=== PATIENT | female | born 1960 | race Caucasian/White ===

== ENCOUNTER 2018-10-30 00:56 | Inpatient (IN) | payer MEDICAID, MEDICARE ==
[2018-10-30] VITALS (11 sets, daily range): BP systolic 101–161; BP diastolic 48–91
[~2018-10-30] VITALS: Ht 162.6 cm; Wt 101.8 kg
[2018-10-30] MEDS ORDERED: CITA20TA6 PO (03:15)
[2018-10-30] MEDS ORDERED: ALPR1TAB6 PO (03:15)
[2018-10-30] MEDS ORDERED: LISI40TA2 PO (03:15)
[2018-10-30] MEDS ORDERED: ALPRAZolam 1 MG TABLET PO SCH (03:30)
[2018-10-30] MEDS ORDERED: HEPARIN for IV BOLUS 10,000 UNIT/10 ML VIAL. IV PRN (03:30)
[2018-10-30] MEDS ORDERED: MORPHINE SULFATE 4 MG/ML VIAL. IV PRN (03:30)
[2018-10-30] MEDS ORDERED: HEPARIN 25,000UTS/500ML PREMIX 500 ML IV PRN (03:30)
[2018-10-30] MEDS ORDERED: ANTI-COAG MONITOR BY PHARMACY. MC PRN (03:45)
[2018-10-30] MEDS: ALPRAZolam 1 MG TABLET PO PRN ×3 (04:18→23:31)
--- NOTE | 2018-10-30 08:38 | EKG ---
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
[2018-10-30 08:47] LABS: MAGNESIUM 1.8 mg/dL (1.8-2.4)
[2018-10-30 08:48] LABS: CHOLESTEROL/HDL RATIO 5.4
--- NOTE | 2018-10-30 09:49 | PDOC2 ---
CARDIAC CONSULT DATE OF CONSULT Date of Consult DATE: 10/30/18 TIME: 09:43 REASON FOR CONSULT Reason for Consult: NSTEMI REFERRING PHYSICIAN Referring Physician: Von SOURCE Source: Chart review, Patient HISTORY OF PRESENT ILLNESS HISTORY OF PRESENT ILLNESS This is a pleasant 58 yo female admitted for complains of chest pain. She was initially at [facility] and transferred to [facility] for further evaluation. Reports this started last night after waking up to go to the bathroom. Reports that she started having left chest burning that went to her left shoulder , arm and left back. No nausea or vomiting but this lasted about an hour. Prior to this no exertional CP, or LOPEZ. Denies any palpitations.. No jaw tightness. No prior hx of CAD. She does have COPD and does not take any ASA nor statin. She was not forthcoming with information particularly with ETOH use. She said that she uses ETOH at least 2-3 shots of whiskey occasionally but her son tells me that she drinks at least about 5x weekly and currently displaying arm tremors. He uses O2 and continue to smoke tobacco. PAST MEDICAL HISTORY Cardiovascular: HTN Pulmonary: COPD CENTRAL NERVOUS SYSTEM: Other (No pertinent history) GI: No pertinent hx Heme/Onc: No pertinent hx Hepatobiliary: No pertinent hx Psych: Anxiety Musculoskeletal: Osteoarthritis Rheumatologic: No pertinent hx Infectious disease: No pertinent hx ENT: No pertinent hx Renal/: No pertinent hx Endocrine: No pertinent hx Dermatology: No pertinent hx PAST SURGICAL HISTORY Past Surgical History: FAMILY HISTORY Family History: Heart Disease (mother CHF) SOCIAL HISTORY Smoke: <1 pack per day (>30 yrs) ALCOHOL: heavy Drugs: None Lives: with Family CURRENT MEDICATIONS CURRENT MEDICATIONS Current Medications Medications (Trade) Dose Ordered Sig/Tanvi Route PRN Reason Start Time Stop Time Status Last Admin Dose Admin Alprazolam (Xanax) 1 mg PRN Q8HRS PRN PO ANXIETY / AGITATION 10/30/18 03:30 10/30/18 04:27 Heparin Sodium/ Dextrose 500 ml @ 0 mls/hr CONT PRN IV SEE I/O RECORD 10/30/18 03:30 10/30/18 04:29 Heparin Sodium (Porcine) (Heparin Sodium) 2,550 unit PRN Q6HRS PRN IV FOR UFH LEVEL LESS THAN 0.2 10/30/18 03:30 10/30/18 06:48 Info (Anti-Coagulation Monitoring By Pharmacy) 1 each PRN DAILY PRN MC SEE COMMENTS 10/30/18 03:45 10/30/18 04:01 ALLERGIES ALLERGIES: Coded Allergies: No Known Drug Allergies (Unverified , 10/30/18) ROS Review of System 14 point ROS evaluated with pertinent positives noted per HPI PHYSICAL EXAM General: Alert, Oriented X3, Cooperative, No acute distress HEENT: Atraumatic, Mucous membr. moist/pink, Other (periodontal disease) Heart: Regular rate (SR), Other (distant heart sounds) Extremities: No cyanosis, No edema Skin: No breakdown, No significant lesion, Other (flushed) Neuro: Normal speech, Sensation intact, Other (arm tremors) Psych/Mental Status: Mental status NL, Mood NL MUSCULOSKELETAL: Osteoarthritic changes both hands VITALS VITALS Vital Signs Date Time Temp Pulse Resp B/P (MAP) Pulse Ox O2 Delivery O2 Flow Rate FiO2 10/30/18 07:10 97.5 83 138/75 (96) 98 Nasal Cannula 3.0 97.5 LABS Lab: Laboratory Tests Test 10/30/18 04:47 10/30/18 08:23 Heparin Anti-Xa Act, Unfractionated 0.13 IU/mL (0.30-0.70) Magnesium Level 1.8 mg/dL (1.8-2.4) Troponin I Quantitative 0.467 ng/mL (0.000-0.055) 0.697 ng/mL (0.000-0.055) Triglycerides Level 312 mg/dL (0-150) Cholesterol Level 253 mg/dL (0-200) LDL Cholesterol, Calculated 144 mg/dL (0-100) VLDL Cholesterol, Calculated 62 mg/dL (0-40) Non-HDL Cholesterol Calculated 206 mg/dL (0-129) HDL Cholesterol 47 mg/dL (40-60) Cholesterol/HDL Ratio 5.4 Thyroid Stimulating Hormone (TSH) 1.102 uIU/mL (0.358-3.74) ASSESSMENT/PLAN ASSESSMENT/PLAN 1. NSTEMI: Trop up to 0.69, EKG SR with acute ST-T wave changes with poor QRS amplitudes 2. Alcoholism 3. HTN: controlled 4. HLP: new no coverage 5. Hyperglycemia 6. Morbid obesity 7. COPD with tobaccoism Recommendations 1. Heparin drip in place. ASA 2. CIWA protocol per PCP. Start on B complex/MVI 3. TTE, TSH, A1C. IVF to start. 4. LHC today, rrisks and benefits discussed and agreeable to proceed. 5. Will restart home BP meds. Start on statin. 6. Wt loss. Discussed smoking cessation and curbing use of ETOH. RA ALONZO APRN Oct 30, 2018 09:49
[2018-10-30] MEDS ORDERED: ASPIRIN ENTERIC COATED 81 MG TABLET.DR. PO SCH (11:00)
[2018-10-30] MEDS ORDERED: IV 1/2 NORMAL SALINE 1,000 ML IV ONE (11:00)
[2018-10-30] MEDS: MULTIVITAMIN with MINERAL TABLET. PO SCH (11:19)
[2018-10-30] MEDS: CITALOPRAM 20 MG TABLET. PO SCH (11:20)
[2018-10-30] MEDS: THIAMINE 100 MG TABLET. PO SCH (11:20)
[2018-10-30] MEDS: FOLIC ACID 1 MG TABLET. PO SCH (11:20)
[2018-10-30] MEDS: LISINOPRIL 20 MG TABLET PO SCH (11:21)
--- NOTE | 2018-10-30 11:46 | CARD ---
MR#: [id number] Date of Study: 10/30/2018 Ordering Physician: RA ALONZO, Referring Physician: LORIN OCAMPO, Tech: Sada Stevens APPROVED REPORT EXAM: Two-dimensional and M-mode echocardiogram with Doppler and color Doppler. Other Information Quality : AverageHR: 81bpm Technically limited study due to body habitus. INDICATION Non STEMI Tricuspid Valve RAP [id number] Peak Gr.23mmHg [id number] LEFT VENTRICLE The left ventricle is normal size. There is mild concentric left ventricular hypertrophy. The left ve ntricular systolic function is normal and the ejection fraction is within normal range. The Ejection Fraction is 50-55%. There is mild hypokinesis in the apical septal wall. The left ventricular diastol ic function and filling is normal for age. RIGHT VENTRICLE The right ventricle is borderline dilated. There is normal right ventricular wall thickness. The righ t ventricular systolic function is normal. ATRIA The left atrium size is normal. The right atrium size is normal. The interatrial septum is intact wit h no evidence for an atrial septal defect or patent foramen ovale as noted on 2-D or Doppler imaging. AORTIC VALVE The aortic valve is not well visualized. Doppler and Color Flow revealed no significant aortic regurg itation. There is no significant aortic valvular stenosis. MITRAL VALVE The mitral valve is normal in structure and function. There is no evidence of mitral valve prolapse. There is no mitral valve stenosis. Doppler and Color-flow revealed trace mitral regurgitation. TRICUSPID VALVE The tricuspid valve is not well visualized. Doppler and Color Flow revealed trace tricuspid regurgita tion. There is no tricuspid valve stenosis. PULMONIC VALVE The pulmonic valve is not well visualized. Doppler and Color Flow revealed no pulmonic valvular regur gitation. There is no pulmonic valvular stenosis. GREAT VESSELS The aortic root is normal in size. The IVC is normal in size and collapses >50% with inspiration. PERICARDIAL EFFUSION There is a trace pericardial effusion. Critical Notification Critical Value: No <Conclusion> The left ventricular systolic function is normal and the ejection fraction is within normal range. Th e Ejection Fraction is 50-55%. There is mild hypokinesis in the apical septal wall. Signed by : Feliberto Candelaria, Electronically Approved : 10/30/2018 11:46:20
[2018-10-30] MEDS ORDERED: IODIXANOL 320 MG/ML 100 ML VIAL. ONE ×2 (12:42→14:07)
[2018-10-30] MEDS ORDERED: LIDOCAINE 1% Multi-Dose 20 ML VIAL. ONE (12:42)
[2018-10-30] MEDS ORDERED: LORazepam 1 MG TABLET PO PRN (12:45)
[2018-10-30] MEDS ORDERED: HALOPERIDOL LACTATE 5 MG/ML VIAL. IVP PRN (12:45)
[2018-10-30] MEDS ORDERED: chlordiazePOXIDE HCL 25 MG CAPSULE PO PRN (12:45)
[2018-10-30] MEDS ORDERED: cloNIDine HCL 0.1 MG TABLET PO PRN (12:45)
--- NOTE | 2018-10-30 12:49 | PDOC ---
MODERATE SEDATION ASSESSMENT RISKS/ALTERNATIVES Risks/Alternatives Risks and alternatives of this type of sedation and procedure discussed with: RISK/ALTERNATIVES: Patient H & P ON CHART H & P H & P on chart and reviewed for co-morbid conditions and appropriate labs. H&P ON CHART: Yes STATUS PREG STATUS ASSESSED: Yes MEDS/ALLERGIES REVIEWED Meds/Allergies Reviewed Medications and Allergies including time and route of recently administered narcotics and sedatives. MEDS/ALLERGIES REVIEWED: Yes ASA RATING ASA RATING: II AIRWAY ASSESSMENT Airway Assessment Airway patency, oral function limitations, presence of caps, crowns, dentures, partials, and ability to extend neck assessed. AIRWAY ASSESSMENT: Yes MALLAMPATI SCORE MALLAMPATI SCORE: II PRE-SEDATION ASSESSMENT PRE-SEDATION ASSESSMENT: Yes SIRI NAJERA MD Oct 30, 2018 12:49
[2018-10-30] MEDS ORDERED: MIDAZOLAM HCL/PF 2 MG/2 ML VIAL. ONE ×2 (13:02→13:35)
[2018-10-30] MEDS ORDERED: fentaNYL PF VIAL 100 MCG/2 ML VIAL ONE (13:02)
--- NOTE | 2018-10-30 13:10 | HP ---
ADMIT DATE: 10/30/2018 HISTORY OF PRESENT ILLNESS: The patient is a 58-year-old female patient who was seen initially at [facility] and was transferred to [facility] for further evaluation. Reportedly, the patient stated that she has chest pain that started last night after waking up to go to the bathroom. She stated she started having left-sided chest pain that she describes as burning that went on to her left shoulder, arm and her left back. She denied any nausea or vomiting, but the episode lasted about an hour. She denied any exertional chest pain, denied any shortness of breath on exertion, denied any palpitation. Denied any previous history of any heart disease. She has had lab work done at [facility], which showed that her troponin was 0.095 and her EKG demonstrated sinus tachycardia with a rate of 101. There are some nonspecific ST changes in the anteroseptal leads. PAST MEDICAL HISTORY: Significant for hypertension, chronic obstructive pulmonary disease, anxiety, osteoarthritis. PAST SURGICAL HISTORY: Significant for . FAMILY HISTORY: Significant for congestive heart failure in her mother. SOCIAL HISTORY: She lives with her family. She smokes a pack a day for more than 30 years. She drinks alcohol heavily, although she tries to minimize that. She does not use any drugs. REVIEW OF SYSTEMS: As per history of present illness. ALLERGIES: She has no known drug allergies. MEDICATIONS: She is currently on following medications: She is on lisinopril 40 mg once a day, citalopram hydrobromide 20 mg once a day, alprazolam 1 mg daily. REVIEW OF SYSTEMS: The patient denied any blurring of vision, cataract, glaucoma or macular degeneration. Denied any earache, tinnitus or sensorineural deafness. Denied any nosebleeds, stuffy nose or postnasal drip. Denied any sore throat, sore tongue, toothache, hoarseness of voice or difficulty swallowing. Denied any nausea, vomiting, diarrhea or constipation. Denied any hematemesis, melena or hematochezia. Denied any dysuria, frequency or hematuria. Did complain of chest pain, but denied any diaphoresis, shortness of breath, orthopnea or paroxysmal nocturnal dyspnea. PHYSICAL EXAMINATION: GENERAL: On arrival, she was sitting slightly propped up in bed, in no apparent respiratory distress. There was no pallor, jaundice, cyanosis, or thyromegaly. No jugular venous distension. No lower lymphedema. VITAL SIGNS: Her heart rate was 77, blood pressure 101/65, temperature was 98, respiratory rate was 18 and oxygen saturation was 97%. HEAD, EYES, EARS, NOSE AND THROAT: Showed normocephalic, atraumatic. NECK: Supple. HEART: Showed normal first and second heart sounds. No gallop, rub or murmur. CHEST: Clear to auscultation. No crepitation or rhonchi. ABDOMEN: Distended, soft, nontender. NEUROLOGIC: She is awake, alert, responding appropriately. All cranial nerves intact. She moves extremities without difficulty. LABORATORY DATA: Her lab work done at [facility] showed a white cell count 7500, hemoglobin 17, hematocrit 50. Her MCV was 110 and platelet count 177,000. Her serum sodium was 144, potassium 3.8, chloride 103, bicarbonate 34, anion gap of 7, BUN 8, creatinine 0.7, estimated GFR was 86 mL per minute. Her glucose was 138, calcium was 9.2, magnesium was 1.9. Total bilirubin and alkaline phosphatase normal. AST, ALT slightly elevated. Her troponin was 0.095 and total protein was 7.3, albumin was 3.4. Lipase was 126 and blood alcohol level was high at 129 mg/dL. ASSESSMENT AND PLAN: The patient was transferred to [facility] with non-ST segment elevation myocardial infarction. We have consulted the Cardiology team. We will do 2 more sets of cardiac enzyme. We will check her fasting lipid profile. As her alcohol intake is excessive, was started on alcohol withdrawal protocol. LORIN OCAMPO MD DR: FLORINA/francie JOB#: [id number] / [id number]
[2018-10-30] MEDS ORDERED: LIDOCAINE 1% Multi-Dose 20 ML VIAL. INJ ONE (13:30)
[2018-10-30] MEDS ORDERED: MIDAZOLAM HCL/PF 2 MG/2 ML VIAL. IV ONE ×2 (13:30→14:15)
[2018-10-30] MEDS ORDERED: fentaNYL PF VIAL 100 MCG/2 ML VIAL IV ONE (13:30)
[2018-10-30] MEDS ORDERED: IODIXANOL 320 MG/ML 100 ML VIAL. IART ONE (13:30)
[2018-10-30] MEDS ORDERED: HEPARIN for IV BOLUS 10,000 UNIT/10 ML VIAL. ONE (13:41)
[2018-10-30] MEDS ORDERED: CONTRAST GIVEN. MC PRN (13:45)
[2018-10-30] MEDS ORDERED: BIVALIRUDIN 250 MG VIAL. IV ONE ×2 (13:46→14:00)
[2018-10-30] MEDS ORDERED: HEPARIN for IV BOLUS 10,000 UNIT/10 ML VIAL. IV ONE (14:00)
[2018-10-30] MEDS ORDERED: ASPIRIN 325 MG TABLET ONE (14:15)
[2018-10-30] MEDS ORDERED: CLOPIDOGREL BISULFATE 75 MG TABLET ONE (14:15)
[2018-10-30] MEDS ORDERED: CLOPIDOGREL BISULFATE 75 MG TABLET PO ONE (14:15)
[2018-10-30] MEDS ORDERED: ASPIRIN 325 MG TABLET PO ONE (14:15)
[2018-10-30] MEDS ORDERED: IV NORMAL SALINE 1000ML BAG 1,000 ML IV SCH (14:27)
[2018-10-30] MEDS ORDERED: ACETAMINOPHEN 325 MG TABLET. PO PRN (14:30)
[2018-10-30] MEDS ORDERED: NITROGLYCERIN SUBLINGUAL 0.4 MG BOTTLE OF 25. SL PRN (14:30)
[2018-10-30] MEDS ORDERED: AMIODARONE 150 MG in IV DEXTROSE 5% 100ML 100 ML IV PRN (14:30)
[2018-10-30] MEDS ORDERED: fentaNYL PF VIAL 100 MCG/2 ML VIAL IV PRN (14:30)
[2018-10-30] MEDS ORDERED: LIDOCAINE 2% 100 MG/5 ML SYRINGE. IV PRN (14:30)
[2018-10-30] MEDS ORDERED: ATROPINE 0.5 MG/5 ML DISP.SYRINGE. IV PRN (14:30)
[2018-10-30] MEDS ORDERED: 0.9 % SODIUM CHLORIDE 10 ML DISP.SYRIN. IV PRN (14:30)
--- NOTE | 2018-10-30 15:09 | EKG ---
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
--- NOTE | 2018-10-30 17:30 | CARD ---
MR#: [id number] Date of Study: 10/30/2018 Ordering Physician: RA ALONZO, Referring Physician: LORIN OCAMPO Tech: Bindu Kraus, RT (R) APPROVED REPORT Procedures Left heart catheterization Left ventriculogram Selective coronary angiogram Bare-metal stent placement to the right coronary artery IFR measurement of the left circumflex. The patient is a 58-year-old female who was admitted with episodes of chest pain and had a mildly paulie vated troponin. She has multiple risk factors and cardiac catheterization and possible revascularizat ion was recommended. Risks and benefits were discussed and the patient agreed to proceed. After informed consent was obtained the patient was brought to the heart catheterization lab. The are a of the right femoral artery was prepared the usual manner with Betadine, sterile draping and local anesthetic. An 18-gauge needle was used to enter the right femoral artery, a wire placed and a 6 Fren ch sheath placed over the wire. A 6 Cypriot JL4 diagnostic catheter was used to engage the left weber ry system and sequential injections in various views were obtained. A 6 Cypriot Brock right diagnos tic catheter was used to engage the right coronary artery and sequential injections in various views were obtained. All exchanges were over a J-wire. Review of the patient's images showed a greater than 95% lesion in the mid right coronary artery as well as a borderline lesion in the left circumflex. W e proceeded to perform an IFR measurement on the left circumflex and then proceeded for revasculariza tion of the right coronary artery. A 6 Cypriot JL4 guide was used to engage the left system. IFR measurement was obtained of the left cir cumflex lesion which was normal at 0.99. Following this Angiomax was administered. A JR4 guide with s jessica holes was used to engage the right coronary artery. A whisper wire was used to cross the lesion. A 2.75 x 15 Euphora balloon was used for two initial dilatations at 8 joey for 15 seconds. A mild mism atch of pre-and post lesion vessel size was identified. The lesion was stented with a 3.0 x 23 MultiL ink bare metal Vision stent with one inflation at 15 joey for 15 seconds. Residual lesion was 0%. The guiding system was removed from the patient. A pigtail was advanced to the ascending aorta and then t he left ventricle. Pressures were obtained. A 30 CARCAMO left ventricular gram was performed. Pullback p ressures were measured. The catheter was removed from the patient. Injection the sheath showed normal placement. The sheath was removed and sealed with an Angio-Seal product. The patient was returned to her room in stable condition. Findings. Hemodynamics. Left ventricle 118 /6, 18. Aortic root 114/66. IFR measurement of the left circumflex was normal at 0.99. Coronaries. Left main. The left main had no lesions. Left anterior descending. The LAD was a moderate size vessel with normal distribution. It was calcifi ed. It had diffuse proximal to mid lesions in the 30-40% range. Left circumflex. The left circumflex is a moderate size vessel. It had an angulated mid lesion of rachael roximately 50%. IFR measurement was normal at 0.99. Right coronary artery. The right coronary had a greater than 95% mid lesion present. Left ventricle. The left ventricle showed normal LV systolic function. Injection was mitigated by a episode of nonsus tained ventricular tachycardia. <Conclusion> Severe single-vessel coronary artery disease in the RCA. Moderate disease in the left anterior descending and the left circumflex vessels. Greater than 95% mid RCA lesion decreased to 0% with a bare metal stent. Normal IFR measurement of the left circumflex lesion. Normal left ventricular systolic function. Signed by : Eddie Couch MD Electronically Approved : 10/30/2018 17:29:57
[2018-10-30] MEDS: METOPROLOL TART IMMED RELEASE 25 MG TABLET. PO SCH (20:32)
[2018-10-30] MEDS ORDERED: ATORVASTATIN CALCIUM 40 MG TABLET. PO SCH (21:00)
[2018-10-30 22:18] LABS: AMPHETAMINE/METHAMPHETAMINE NEG (NEG); BARBITURATES NEG (NEG); BENZODIAZEPINES POS (NEG); CANNABINOIDS NEG (NEG); COCAINE NEG (NEG); METHADONE NEG (NEG); OPIATES NEG (NEG); PHENCYCLIDINE NEG (NEG)
[2018-10-30 23:12] LABS: HEMOGLOBIN A1C 5.6 % (4.8-5.6)
[2018-10-31 03:49] VITALS: BP 109/63
[2018-10-31 04:09] LABS: BASO % 0 % (0-3); EOS # 0.1 x10^3/uL (0.0-0.7); EOS % 1 % (0-3); HEMATOCRIT 43.5 % (36.0-47.0); HEMOGLOBIN 14.7 g/dL (12.0-15.5); LYMPH # 2.3 x10^3/uL (1.0-4.8); LYMPH % 31 % (24-48); MEAN CORPUSCULAR HEMOGLOBIN 37 pg (25-35); MEAN CORPUSCULAR HGB CONC 34 g/dL (31-37); MEAN CORPUSCULAR VOLUME 110 fL (79-100); MONO # 0.4 x10^3/uL (0.0-1.1); MONO % 6 % (0-9); NEUT # 4.6 x10^3uL (1.8-7.7); NEUT % 62 % (31-73); PLATELET COUNT 142 x10^3/uL (140-400); RED BLOOD COUNT 3.94 x10^6/uL (3.50-5.40); RED CELL DISTRIBUTION WIDTH 14.5 % (11.5-14.5); WHITE BLOOD COUNT 7.4 x10^3/uL (4.0-11.0)
[2018-10-31 04:25] LABS: CALCIUM 8.7 mg/dL (8.5-10.1); CREATININE 0.7 mg/dL (0.6-1.0); GFR 85.9
[2018-10-31 06:10] LABS: PLT ESTIMATE ADEQUATE (ADEQUATE)
[2018-10-31 07:25] VITALS: BP 103/61
--- NOTE | 2018-10-31 07:51 | EKG ---
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
[2018-10-31] MEDS ORDERED: ASPIRIN ENTERIC COATED 325 MG TABLET.DR. PO SCH (08:00)
[2018-10-31] MEDS ORDERED: CLOPIDOGREL BISULFATE 75 MG TABLET PO SCH (08:00)
[2018-10-31] MEDS: LISINOPRIL 20 MG TABLET PO SCH (09:00)
[2018-10-31] MEDS ORDERED: MULTIVITAMIN with MINERAL TABLET. PO SCH (09:00)
[2018-10-31] MEDS ORDERED: ASPIRIN RECTAL 300 MG SUPP. PR SCH (09:00)
[2018-10-31] MEDS ORDERED: FOLIC ACID 1 MG TABLET. PO SCH (09:00)
[2018-10-31] MEDS: MULTIVITAMIN with MINERAL TABLET. PO SCH (09:02)
[2018-10-31] MEDS: FOLIC ACID 1 MG TABLET. PO SCH (09:02)
[2018-10-31] MEDS: THIAMINE 100 MG TABLET. PO SCH (09:03)
[2018-10-31] MEDS: CITALOPRAM 20 MG TABLET. PO SCH (09:03)
--- NOTE | 2018-10-31 09:25 | PDOC ---
CARDIO Progress Notes Date and Time Date of Service 10/31/18 Time of Evaluation 0930 Subjective Subjective: No Chest Pain, No shortness of breath, No Palpitations Vitals Vitals Vital Signs Date Time Temp Pulse Resp B/P (MAP) Pulse Ox O2 Delivery O2 Flow Rate FiO2 10/31/18 07:50 Nasal Cannula 3.0 10/31/18 07:25 97.3 66 18 103/61 (75) 91 97.3 Weight Weight [ ] Input and Output Intake and Output Intake and Output 10/31/18 06:59 Intake Total 698 ml Output Total 2425 ml Balance -1727 ml Intake Oral 600 ml IV Total 98 ml Output Urine Total 2425 ml Laboratory Labs Laboratory Tests Test 10/30/18 12:45 10/30/18 22:00 10/31/18 03:15 Heparin Anti-Xa Act, Unfractionated 0.36 IU/mL (0.30-0.70) Troponin I Quantitative 0.972 ng/mL (0.000-0.055) Urine Opiates Screen Neg (NEG) Urine Methadone Screen Neg (NEG) Urine Barbiturates Neg (NEG) Urine Phencyclidine Screen Neg (NEG) Urine Amphetamine/Methamphetamine Neg (NEG) Urine Benzodiazepines Screen Pos (NEG) Urine Cocaine Screen Neg (NEG) Urine Cannabinoids Screen Neg (NEG) Urine Ethyl Alcohol Neg (NEG) White Blood Count 7.4 x10^3/uL (4.0-11.0) Red Blood Count 3.94 x10^6/uL (3.50-5.40) Hemoglobin 14.7 g/dL (12.0-15.5) Hematocrit 43.5 % (36.0-47.0) Mean Corpuscular Volume 110 fL (79-100) Mean Corpuscular Hemoglobin 37 pg (25-35) Mean Corpuscular Hemoglobin Concent 34 g/dL (31-37) Red Cell Distribution Width 14.5 % (11.5-14.5) Platelet Count 142 x10^3/uL (140-400) Neutrophils (%) (Auto) 62 % (31-73) Lymphocytes (%) (Auto) 31 % (24-48) Monocytes (%) (Auto) 6 % (0-9) Eosinophils (%) (Auto) 1 % (0-3) Basophils (%) (Auto) 0 % (0-3) Neutrophils # (Auto) 4.6 x10^3uL (1.8-7.7) Lymphocytes # (Auto) 2.3 x10^3/uL (1.0-4.8) Monocytes # (Auto) 0.4 x10^3/uL (0.0-1.1) Eosinophils # (Auto) 0.1 x10^3/uL (0.0-0.7) Basophils # (Auto) 0.0 x10^3/uL (0.0-0.2) Platelet Estimate Adequate (ADEQUATE) Macrocytosis Slight Sodium Level 142 mmol/L (136-145) Potassium Level 4.0 mmol/L (3.5-5.1) Chloride Level 102 mmol/L (98-107) Carbon Dioxide Level 38 mmol/L (21-32) Anion Gap 2 (6-14) Blood Urea Nitrogen 7 mg/dL (7-20) Creatinine 0.7 mg/dL (0.6-1.0) Estimated GFR (Cockcroft-Gault) 85.9 Glucose Level 142 mg/dL (70-99) Calcium Level 8.7 mg/dL (8.5-10.1) Physical Exam HEENT: Neck Supple W Full Motion Chest: Symmetric LUNGS: Clear to Auscultation Heart: RRR Abdomen: Soft N/T Extremities: No Edema, Other (right groin arteriotomy site soft, clean, and dry. No hematoma present. Bilasteral neurovascular status intact) Neurology: alert, oriented, follow commands Assessment Assessment 1. NSTEMI: trop peak 0.972 2. CAD s/p PCI/BMS to RCA. Moderate disease in the lLAD and LCx. Negative IFR. LVEF 50-55% per echo 3. HTN: marginal 4. HLP: new no coverage 5. Hyperglycemia; as per PCP 6. Morbid obesity 7. COPD with tobaccoism 8. Alcoholism Recommendations Secondary prevention including DAPT with ASA and Plavix. Continue statin, BB. Decrease lisinopril to 20mg given marginal BP Cardiac rehab referral Risk stratification modification Reinforced smoking cessation and curbing use of ETOH. KENYETTA CLEMENTE APRN Oct 31, 2018 09:25
--- NOTE | 2018-10-31 09:29 | PDOC ---
Core Measures: STEMI/NSTEMI Preference Shreya: ASA on Arrival: Yes ASA on Discharge: Yes Discharge Beta Yoshi: Yes Discharge LUDMILA-I/ARB: Yes Discharge statin: Yes Smoking cessation counseling: Yes Cardiac rehabilitation: Yes Eval of LV Systolic Function: Yes (50-55%) KENYETTA CLEMENTE APRN Oct 31, 2018 09:29
[2018-10-31] MEDS ORDERED: ATOR40TA59 PO (09:37)
[2018-10-31] MEDS ORDERED: ASPI325T11 PO (09:37)
[2018-10-31] MEDS ORDERED: CLOP75TA PO (09:37)
[2018-10-31] MEDS ORDERED: LISI-130 PO (09:37)
[2018-10-31] MEDS ORDERED: METO25TA4 PO (09:37)
[2018-10-31] MEDS ORDERED: LISINOPRIL 20 MG TABLET PO ONE (10:15)
[2018-10-31] MEDS: METOPROLOL TART IMMED RELEASE 25 MG TABLET. PO SCH (10:57)
[2018-10-31] MEDS ORDERED: NICOTINE 14MG PATCH. TD SCH (11:00)
[2018-10-31 11:10] VITALS: BP 121/76
--- NOTE | 2018-10-31 13:26 | NUR ---
Discharge Note: RONEN BURLESON [facility] Discharge instructions and discharge home medications reviewed with Patient and a copy given. All questions have been answered and understanding verbalized. The following instructions and handouts were given: diet, medications, smoking, post cath care, follow up, stop drinking. Discontinued lines and drains: IV removed, no lines in place at discharge. Patient discharged to home, left via wheelchair to her son's vehicle.
--- NOTE | 2018-10-31 14:23 | DS ---
DATE OF DISCHARGE: 10/31/2018 HOSPITAL COURSE: The patient is a 58-year-old female patient who was seen originally at [facility] with a complaint of chest pain. Her troponin was found to be high and was transferred to [facility] with diagnosis of non-ST segment elevation myocardial infarction. She has had an echocardiogram done, which showed the patient has left ventricular systolic function is normal with an ejection fraction within normal range at 50%-55%. There is mild hypokinesis in the apical septal wall. She underwent cardiac catheterization, which basically showed that there is severe single vessel coronary artery disease involving the right coronary artery with moderate disease in the left anterior descending and the left circumflex vessels, greater than 95% mid right coronary artery disease and lesion decreased to zero with a bare metal stent. Her left ventricular systolic function was normal. The patient was started on Plavix. Her medications were adjusted as she was borderline hypotensive, so her lisinopril was cut down to 20 mg and a decision was made to discharge her home to continue on all her medication. When I saw her this morning, she looked well and was sitting on the edge of the bed comfortably in no apparent distress, had no more chest pain, no shortness of breath. PHYSICAL EXAMINATION: GENERAL: On examining her, there was no pallor, jaundice, cyanosis, or thyromegaly. No jugular venous distension. No limb edema. VITAL SIGNS: Her heart rate was 70, blood pressure was 121/76, temperature was 97.4, respiratory rate was 18 and oxygen saturation was 93% on 3 liters of oxygen. HEAD, EYES, EARS, NOSE AND THROAT: Showed normocephalic, atraumatic. NECK: Supple. HEART: Showed normal first and second heart sounds. No gallop, rub or murmur. CHEST: Clear to auscultation. No crepitation or rhonchi. ABDOMEN: Distended, soft, nontender. No guarding or rigidity. No organomegaly. All hernial orifices intact. Bowel sounds normal. NEUROLOGIC: She is awake, alert, responding appropriately. All cranial nerves intact. EXTREMITIES: She moves extremities without difficulty. She ambulates without assistance or assistive devices. Her intake and output were incompletely recorded. LABORATORY WORK: This morning showed her white cell count was 7400, hemoglobin 14.7, hematocrit 43.5, MCV 110 and platelet count of 142,000 with normal manual differential. Her chemistry showed a serum sodium 142, potassium 4, chloride 102, bicarbonate 38, anion gap of 2, BUN 7, creatinine 0.7, estimated GFR was 86 mL per minute. Her glucose was 142. Calcium was 8.7. TSH was normal at 1.1. Her serum triglycerides were 312, total cholesterol 253, LDL was 144, VLDL was 62, HDL was 47, her ratio was 5.4. Her toxicology screen was positive for benzodiazepine. DISCHARGE MEDICATIONS: She was discharged home to continue on following medications: Aspirin 325 mg once a day, atorvastatin 40 mg at bedtime, clopidogrel for Plavix 75 mg daily with breakfast, lisinopril 20 mg once a day, metoprolol 12.5 mg twice a day. Should continue her alprazolam 1 mg daily and citalopram hydrobromide 20 mg daily. FINAL DISCHARGE DIAGNOSES: 1. Non-ST segment elevation myocardial infarction with troponin that has peaked up to 0.972. 2. Coronary artery disease, status post percutaneous coronary intervention with bare metal stent to the right coronary artery. The patient has moderate disease of the left anterior descending and circumflex. 3. Hypertension. 4. Hyperlipidemia. 5. Hyperglycemia. 6. Morbid obesity. 7. Chronic obstructive pulmonary disease with tobaccoism. 8. Alcoholism. The patient was counseled for alcohol and tobacco and was also instructed to follow up with her primary care physician as her blood sugar was slightly elevated. LORIN OCAMPO MD DR: FLORINA/francie JOB#: [id number] / [id number]
[2018-11-01] MEDS ORDERED: LISINOPRIL 20 MG TABLET PO SCH (09:00)
== END 2018-10-31 13:05 | disposition home or self-care (01) | DRG 248 ==
LOC: 2 SOUTH 02:31
PROVIDERS: ADMIT Internal Medicine; ATTEND Internal Medicine
PROC: 02703DZ Dilation of Coronary Artery, One Artery with Intraluminal Device, Percutaneous Approach (ICD-10-PCS; principal; 2018-10-30)
PROC: 4A023N7 Measurement of Cardiac Sampling and Pressure, Left Heart, Percutaneous Approach (ICD-10-PCS; 2018-10-30)
PROC: B2111ZZ Fluoroscopy of Multiple Coronary Arteries using Low Osmolar Contrast (ICD-10-PCS; 2018-10-30)
PROC: B2151ZZ Fluoroscopy of Left Heart using Low Osmolar Contrast (ICD-10-PCS; 2018-10-30)
PROC: 4A033BC Measurement of Arterial Pressure, Coronary, Percutaneous Approach (ICD-10-PCS; 2018-10-30)
DX: I21.4 Non-ST elevation (NSTEMI) myocardial infarction (principal); J96.20 Acute and chronic respiratory failure, unspecified whether with hypoxia or hypercapnia; I10 Essential (primary) hypertension; E66.01 Morbid (severe) obesity due to excess calories; J44.9 Chronic obstructive pulmonary disease, unspecified; F41.9 Anxiety disorder, unspecified; M19.90 Unspecified osteoarthritis, unspecified site; F17.210 Nicotine dependence, cigarettes, uncomplicated; F10.20 Alcohol dependence, uncomplicated; R73.9 Hyperglycemia, unspecified; E78.5 Hyperlipidemia, unspecified; Z82.49 Family history of ischemic heart disease and other diseases of the circulatory system; I25.10 Atherosclerotic heart disease of native coronary artery without angina pectoris; Z68.38 Body mass index [BMI] 38.0-38.9, adult; Z71.6 Tobacco abuse counseling
CPT/HCPCS: 36415; 80048; 80061; 80307; 83036; 83735; 84443; 84484; 85025; 85520; 90471; 90756; 92928; 93005; 93306; 93458; 93571; 99152; 99153; 99406; C1760; C1769; C1887; C1892; G0269; J0583; J1644; J2250; J3010; Q9967; C1771; Q2035